=== PATIENT | female | born 1935 | race Caucasian/White ===

== ENCOUNTER → 2017-07-20 | Outpatient (CLI) | payer MEDICARE ==
--- NOTE | 2017-07-20 14:14 | PCVCIMAG ---
EXAM: ABDOMINAL ULTRASOUND COMPLETE INDICATION: Abdominal pain FINDINGS: Gallbladder: No gallstones. No wall thickening or abnormal pericholecystic fluid. Liver: Normal in size measuring 13.2 cm in length. No focal masses. Bile ducts: No intra or extra hepatic bile duct dilatation. The common bile duct measures 3.7 mm. Pancreas: Unremarkable where seen. Spleen: Normal in size measuring 11.7 cm in greatest dimension. No focal masses. Right kidney: No hydronephrosis. Length measures 9.8 cm. Left kidney: No hydronephrosis. Length measures 10.1 cm. Inferior vena cava: Normal in size where seen. Aorta: Normal in caliber where seen. IMPRESSION: Unremarkable abdominal ultrasound. LOC:[id number]
--- NOTE | 2017-07-20 18:50 | PCVCIMAG ---
APPROVED REPORT Study performed: 07/20/2017 09:34:45 EXAM: Comprehensive 2D, Doppler, and color-flow Echocardiogram Patient Location: Echo lab Status: routine BSA: 1.76 HR: 69 bpmBP: 136/84 mmHg Rhythm: NSR Other Information Study Quality: Adequate Indications Diabetes Palpitations Hypertension/HDD 2D Dimensions IVSd: 7.24 (7-11mm)LVOT Diam: 20.15 (18-24mm) LVDd: 41.72 mm PWd: 7.42 (7-11mm)Ascending Ao: 29.99 (22-36mm) LVDs: 24.13 (25-40mm) Left Atrium: 27.04 (27-40mm) Aortic Root: 25.06 mm LV Single Plane 4CH: 64.98 % LV Single Plane 2CH: 64.47 %[place]'s LVEF: 64.72 % Biplane EF: 65.4 % Volumes Left Atrial Volume (Systole) Single Plane 4CH: 40.69 mLSingle Plane 2CH: 32.10 mL Biplane LA Volume: 38.00 mLLA ESV Index: 22.00 mL/m2 Aortic Valve AoV Peak Ruddy.: 1.12 m/s AO Peak Gr.: 5.02 mmHgLVOT Max P.61 mmHg LVOT Max V: 0.95 m/s SANTO Vmax: 2.70 cm2 Mitral Valve E/A Ratio: 0.8 MV Decel. Time: 256.65 ms MV E Max Ruddy.: 0.67 m/s MV A Ruddy.: 0.84 m/s IVRT: 96.89 ms TDI E/Lateral E': 11.17E/Medial E': 13.40 Medial E' Ruddy.: 0.05 m/s Lateral E' Ruddy.: 0.06 m/s Pulmonary Valve PV Peak Ruddy.: 0.86 m/sPV Peak Gr.: 2.98 mmHg Pulmonary Vein P Vein S: 0.58 m/sP Vein A: 0.27 m/s P Vein D: 0.39 m/sP Vein A Dur.: 86.5 msec P Vein S/D Ratio: 1.49 Tricuspid Valve TR Peak Ruddy.: 1.76 m/s TR Peak Gr.: 12.42 mmHg TV Vmax: 0.52 m/sPA Pressure: 19.00 mmHg Left Ventricle The left ventricle is normal size. There is normal LV segmental wall motion. There is normal left ventricular wall thickness. Left ventricular systolic function is normal. The left ventricular ejection fraction is within the normal range. LVEF is 65%. Grade I - abnormal relaxation pattern. Right Ventricle The right ventricle is normal size. The right ventricular systolic function is normal. Atria The left atrium size is normal. The right atrium size is normal. Aortic Valve The aortic valve is normal in structure. No aortic regurgitation is present. There is no aortic valvular stenosis. Mitral Valve The mitral valve is normal in structure. There is no mitral valve regurgitation noted. No evidence of mitral valve stenosis. Tricuspid Valve The tricuspid valve is normal in structure. Trace tricuspid regurgitation. Pulmonic Valve The pulmonary valve is normal in structure. There is no pulmonic valvular regurgitation. Great Vessels The aortic root is normal in size. The ascending aorta is normal in size. IVC is normal in size and collapses with >50% inspiration Pericardium There is no pericardial effusion. There is no pleural effusion. <Conclusion> Left ventricular systolic function is normal. The left ventricular ejection fraction is within the normal range. LVEF is 65%. Grade I - abnormal relaxation pattern. The right ventricle is normal size. The left atrium size is normal. There is no aortic valvular stenosis. There is no mitral valve regurgitation noted. Trace tricuspid regurgitation. The aortic root is normal in size. There is no pericardial effusion.
== END | disposition home or self-care (01) ==
LOC: PCVCIMAG 09:48
PROVIDERS: ATTEND Internal Medicine Cardiovascular Disease
DX: I07.1 Rheumatic tricuspid insufficiency (principal); I10 Essential (primary) hypertension; E11.9 Type 2 diabetes mellitus without complications; R10.84 Generalized abdominal pain; E78.00 Pure hypercholesterolemia, unspecified; Z85.6 Personal history of leukemia; Z86.39 Personal history of other endocrine, nutritional and metabolic disease; Z90.710 Acquired absence of both cervix and uterus; Z79.84 Long term (current) use of oral hypoglycemic drugs; Z88.1 Allergy status to other antibiotic agents; Z88.2 Allergy status to sulfonamides; Z88.8 Allergy status to other drugs, medicaments and biological substances
CPT/HCPCS: 76700; 80061; 93005; 93306; G0463

== ENCOUNTER → 2018-08-08 | Outpatient (CLI) | payer MEDICARE | END | disposition home or self-care (01) | LOC: PCVCCLINIC 15:18 | PROVIDERS: ATTEND Internal Medicine Cardiovascular Disease | DX: I10 Essential (primary) hypertension (principal); E78.5 Hyperlipidemia, unspecified; E78.00 Pure hypercholesterolemia, unspecified; E11.9 Type 2 diabetes mellitus without complications; R94.31 Abnormal electrocardiogram [ECG] [EKG]; Z88.8 Allergy status to other drugs, medicaments and biological substances; Z85.6 Personal history of leukemia; Z79.899 Other long term (current) drug therapy; Z79.84 Long term (current) use of oral hypoglycemic drugs | CPT/HCPCS: 80061; 93005; G0463 ==

== ENCOUNTER → 2019-03-28 | Outpatient (CLI) | payer MEDICARE | END | disposition home or self-care (01) | LOC: PCVCCLINIC 11:00 | PROVIDERS: ATTEND Internal Medicine Cardiovascular Disease | DX: I10 Essential (primary) hypertension (principal); E78.00 Pure hypercholesterolemia, unspecified; E11.9 Type 2 diabetes mellitus without complications; R94.31 Abnormal electrocardiogram [ECG] [EKG]; K58.9 Irritable bowel syndrome, unspecified; E78.5 Hyperlipidemia, unspecified; Z85.6 Personal history of leukemia; Z79.899 Other long term (current) drug therapy; Z88.0 Allergy status to penicillin; Z88.8 Allergy status to other drugs, medicaments and biological substances; Z88.2 Allergy status to sulfonamides | CPT/HCPCS: 36415; 80061; 93005; G0463 ==

== ENCOUNTER → 2019-11-05 | Outpatient (CLI) | payer MEDICARE | END | disposition home or self-care (01) | LOC: PCVCCLINIC 16:19 | PROVIDERS: ATTEND Internal Medicine Cardiovascular Disease | DX: I10 Essential (primary) hypertension (principal); E78.5 Hyperlipidemia, unspecified; E78.00 Pure hypercholesterolemia, unspecified; E11.9 Type 2 diabetes mellitus without complications; M54.9 Dorsalgia, unspecified; M06.9 Rheumatoid arthritis, unspecified; Z85.6 Personal history of leukemia; Z90.49 Acquired absence of other specified parts of digestive tract; Z90.710 Acquired absence of both cervix and uterus; Z88.8 Allergy status to other drugs, medicaments and biological substances; Z79.899 Other long term (current) drug therapy | CPT/HCPCS: 36415; 80061; 93005; G0463 ==